=== PATIENT | male | born 1985 | race Caucasian/White ===

== ENCOUNTER 2018-06-02 21:53 | Emergency (ER) | payer OTHER ==
[~2018-06-02] VITALS: Ht 167.6 cm; Wt 57.7 kg
[2018-06-02 22:06] VITALS: BP 122/63
[2018-06-02] MEDS ORDERED: NS 1000ML 1,000 ML IV STA (22:08)
[2018-06-02] MEDS ORDERED: TORADOL IV STA (22:08)
[2018-06-02] MEDS ORDERED: TORADOL ONE (22:11)
[2018-06-02] MEDS ORDERED: NS 1000ML 1,000 ML ONE (22:11)
--- NOTE | 2018-06-02 22:11 | ER.PDOC ---
General Chief Complaint: Requesting Medical Care Stated Complaint: LWR ABD PAIN Time seen by MD: 22:10 Source: patient Exam Limitations: no limitations History of Present Illness Initial Comments Lower abdominal pain for 1 week Severity/Quality: moderate Radiation: no radiation Associated Symptoms: denies symptoms Exacerbated by: nothing Relieved By: nothing Allergies: Coded Allergies: codeine (Verified Allergy, Unknown, 10/07/17) Vital Signs First Vital Signs Date Time Temp Pulse Resp B/P (MAP) Pulse Ox O2 Delivery O2 Flow Rate FiO2 06/02/18 22:06 97.9 86 18 97.9 06/02/18 22:06 122/63 (82) 99 Room Air Last Vital Signs Date Time Temp Pulse Resp B/P (MAP) Pulse Ox O2 Delivery O2 Flow Rate FiO2 06/02/18 22:06 97.9 86 18 122/63 (82) 99 Room Air 97.9 Past Medical History Medical History: no pertinent history Surgical History: no surgical history, other Social History Drug Use: marijuana, Amphetamines Constitutional: no symptoms reported EENTM: no symptoms reported Respiratory: no symptoms reported Cardiovascular: no symptoms reported Gastrointestinal: see HPI All Other Systems: Reviewed and Negative Physical Exam General Appearance: No Apparent Distress, WD/WN Neck: Non-Tender, Full Range of Motion, Supple, Normal Inspection Respiratory: chest non-tender, lungs clear, normal breath sounds, no respiratory distress, no accessory muscle use Cardiovascular: Normal Peripheral Pulses, Regular Rate, Rhythm, No Edema, No Gallop, No JVD, No Murmur Gastrointestinal: Normal Bowel Sounds, No Organomegaly, No Pulsatile Mass, Tenderness (lower abdomen) Back: Normal Inspection, No CVA Tenderness, No Vertebral Tenderness Extremities: Normal Range of Motion, Non-Tender, Normal Inspection, No Pedal Edema, No Calf Tenderness, Normal Capillary Refill, Pelvis Stable 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 Moderate fecal retention throughout the colon. Course Duration or Total Time Spent w: 15 Vitals & review Data Vital Sign - Last 24 Hours 06/02/18 06/02/18 22:06 22:06 Temp 97.9 97.9 97.9 97.9 Pulse 86 86 Resp 18 18 B/P (MAP) 122/63 (82) Pulse Ox 99 O2 Delivery Room Air Sepsis Infection Criteria Pres: None O2 Sat by Pulse Oximetry: 99 Departure Time of Disposition: 00:22 Disposition: 01 HOME, SELF-CARE Impression: Primary Impression: Abdominal pain Additional Impressions: Constipation UTI (urinary tract infection) Condition: Stable Referrals: PCP,UNKNOWN (PCP) PRIMARY CARE PROVIDER Additional Instructions: Magnesium Citrate OTC as directed Cipro F/U with your PCP in 2-3 days Duration or Time Spent with Pa: 90 mins Problem Qualifiers Primary Impression: Abdominal pain Abdominal location: unspecified location Qualified Codes: R10.9 - Unspecified abdominal pain Additional Impressions: Constipation Constipation type: unspecified constipation type Qualified Codes: K59.00 - Constipation, unspecified UTI (urinary tract infection) Urinary tract infection type: site unspecified Hematuria presence: without hematuria Qualified Codes: N39.0 - Urinary tract infection, site not specified JOE LONDON MD Jun 02, 2018 22:11
[2018-06-02 22:30] LABS: BASOPHIL # 0.1 10^3/uL (0.0-0.1); BASOPHIL % 0.9 % (0.0-0.2); EOSINOPHIL # 0.3 10^3/uL (0.0-0.2); EOSINOPHIL % 5.7 % (0.0-5.0); HEMOGLOBIN 14.8 g/dL (13.9-16.3); LYMPHOCYTES # 2.2 10^3/uL (1.0-4.8); LYMPHOCYTES % 37.7 % (24.0-44.0); MEAN CELL HGB 29.2 pg (26-34); MEAN CELL HGB CONCENTRATION 35.1 g/dL (33-37); MEAN CORP VOLUME 83.4 fL (78-100); MONOCYTES # 0.4 10^3/uL (0.3-0.8); MONOCYTES % 7.2 % (5.0-12.0); NEUTROPHIL # 2.8 10^3/uL (1.8-7.7); NEUTROPHILS % 48.2 % (41.0-85.0); RED CELL DISTRIBUTION WIDTH 13.2 % (11.5-14.5); WHITE BLOOD CELL 5.8 10^3/uL (4.5-11.0)
[2018-06-02 22:37] LABS: BILIRUBIN,URINE NEGATIVE (NEGATIVE); UROBILINOGEN,URINE NORMAL (NEGATIVE)
[2018-06-02 22:38] LABS: APPEARANCE,URINE HAZY (CLEAR); UA COLOR YELLOW (YELLOW)
[2018-06-02 22:48] LABS: CALCIUM 9.1 mg/dL (8.4-10.5); CARBON DIOXIDE 26.8 mmol/L (20.0-32)
[2018-06-02 23:00] VITALS: BP 108/55
--- NOTE | 2018-06-02 23:42 | DIREP ---
PROCEDURE:CT ABDOMEN/PELVIS W/ CONTRAST COMPARISON:[facility], CT, CT ABD/PELVIS W/ CONTRAST, 10/07/2017, 03:00 AM. INDICATIONS:Lower abdominal pain TECHNIQUE:Axial images were created through the abdomen and pelvis with non-ionic intravenous contrast material. No oral contrast was administered. Sagittal and coronal reconstructions were performed from source images. FINDINGS: LUNG BASES:Normal. No visible pulmonary or pleural disease. LIVER:Normal. No significant liver lesions are identified. BILIARY:Normal. No visible dilatation or calcification. PANCREAS:Normal. No lesion, fluid collection, ductal dilatation, or atrophy. SPLEEN:Normal. No enlargement or focal lesion. ADRENALS:Normal. No mass or enlargement. URINARY TRACT:Normal. No focal lesions or hydronephrosis. AORTA/VASCULAR:Normal. No aneurysm. RETROPERITONEUM:Normal. No mass or adenopathy. BOWEL/MESENTERY:Small bowel normal caliber. Terminal ileum is normal. Appendix is normal. Increased amount of stool is seen throughout the colon. The stomach is distended. ABDOMINAL WALL:Normal. No mass or hernia. PELVIC ORGANS:Normal. No visible mass. Pelvic organs appropriate for patient age. BONES:Normal for age. No bony lesion or acute fracture. OTHER:Negative. CONCLUSION:Normal appendix. Moderate fecal retention throughout the colon. Dictated by: Carlos Dubon MD on 06/02/2018 at 11:38 PM
--- NOTE | 2018-06-03 00:30 | NUR ---
IV IVS REMOVED FROM LT AC AND RT HAND. CATHETERS ALL INTACT. HELD PRESSURE AND NO FURTHER BLEEDING. APPLIED BAND AID.
[2018-06-03 00:47] VITALS: BP 101/55
== END 2018-06-03 00:35 | disposition home or self-care (01) ==
LOC: ER 21:53
DX: N39.0 Urinary tract infection, site not specified (principal); K59.00 Constipation, unspecified; F12.10 Cannabis abuse, uncomplicated; F15.10 Other stimulant abuse, uncomplicated; Z88.5 Allergy status to narcotic agent
CPT/HCPCS: 36415; 74177; 80053; 81000; 83690; 85025; 85610; 85730; 87086; 96374; 99285; J1885; J7030; Q9965